=== PATIENT | female | born 1975 | race Caucasian/White ===

== ENCOUNTER 2022-10-04 13:35 | Inpatient (IN) | payer OTHER, SELFPAY ==
[2022-10-04] VITALS (31 sets, daily range): BP systolic 121–146; BP diastolic 56–81; PULSE 85–109; RESP 18–34; TEMP 36.6–37.1; O2SAT 88–100; BMI 44.2
--- NOTE | ~2022-10-04 | XR_ITS ---
EXAMINATION: XR chest 1V portable INDICATION: Abnormal lung sounds TECHNIQUE: Portable AP chest at 1035 hours COMPARISON: 10/04/2022 FINDINGS: The lungs are free of acute opacities. No pleural effusion or pneumothorax. The cardiomedia stinal silhouette is normal. IMPRESSION: 1. No acute cardiopulmonary abnormality. Reviewed, dictated and finalized at location A.
--- NOTE | ~2022-10-04 | US_ITS ---
EXAMINATION: US venous doppler [facility] DATE: 10/05/2022 14:24 INDICATION: Lower limb swelling. TECHNIQUE: Grayscale ultrasound images without and with compression and Doppler ultrasound images of the bilateral lower extremity veins were obtained. COMPARISON: None. FINDINGS: The visualized portions of right common femoral vein, profunda (deep) femoral vein, femoral vein, pop liteal vein, peroneal veins, posterior tibial veins, and greater saphenous vein outflow are patent. The visualized portions of left common femoral vein, profunda femoral vein, femoral vein, popliteal v ein, peroneal veins, posterior tibial veins, and greater saphenous vein outflow are patent. IMPRESSION: 1. No deep venous thrombosis. Reviewed, dictated and finalized at location A.
--- NOTE | ~2022-10-04 | XR_ITS ---
EXAMINATION: XR chest 2V DATE: 10/04/2022 15:27 INDICATION: Shortness of breath, cough and wheezing TECHNIQUE: PA and lateral views of the chest were obtained. COMPARISON: None FINDINGS: The lungs are clear with no focal airspace opacities, pulmonary edema, pleural effusion or pneumothor ax. The cardiomediastinal silhouette is normal. Mild thoracic spondylosis. IMPRESSION: 1. No acute cardiopulmonary disease. Reviewed, dictated and finalized at location A.
--- NOTE | ~2022-10-04 | CT_ITS ---
EXAMINATION: CTA chest PE protocol DATE: 10/04/2022 18:26 INDICATION: Shortness of breath. Wheezing. Bilateral lower limb swelling. TECHNIQUE: Computed tomography (CT) pulmonary angiogram of the chest was performed with 100 mL Omnipa que-350 intravenous contrast. Additional 3D reconstructions utilizing coronal maximum intensity proje ction (MIP) were performed. Automated exposure control and iterative reconstruction technique were em ployed. The dose-length product was 932.34 mGy-cm. COMPARISON: None FINDINGS: Good contrast opacification of the pulmonary arteries. There is mild streak artifact from dense contr ast in the superior vena cava and right atrium. Mild to moderate scattered respiratory motion artifac t which mildly decreases sensitivity in some of the segmental and subsegmental pulmonary arteries. No pulmonary embolism. Calcified nodules at the inferomedial right lower lobe consistent with old granu lomatous disease. No pneumonia, pulmonary edema or other pulmonary infiltrates. No pleural effusion o r pneumothorax. Heart size is normal. No pericardial effusion. No pathologically enlarged thoracic ly mphadenopathy. Very small calcified gallstone in the dependent aspect of the normal gallbladder. Mild thoracic spondylosis. IMPRESSION: 1. No pulmonary embolism. Sensitivity mildly decreased in the segmental and subsegmental pulmonary ar teries due to primarily to mild to moderate scattered motion artifact. No other acute cardiopulmonary disease. Reviewed, dictated and finalized at location A. IMPRESSION: 1. No pulmonary embolism. Sensitivity mildly decreased in the segmental and sub segmental pulmonary arteries due to primarily to mild to moderate scattered mot ion artifact. No other acute cardiopulmonary disease.
--- NOTE | 2022-10-04 13:40 | ECG_ITS ---
Measurements Intervals [place] Rate: 97 P: 48 NC: 140 QRS: 66 QRSD: 84 T: 45 QT: 349 QTc: 445 Interpretive Statements SINUS RHYTHM LOW QRS VOLTAGE IN PRECORDIAL LEADS NONSPECIFIC ST & T-WAVE ABNORMALITY- ANTEROLAT/INF LEADS BASELINE WANDER- III, V5 BORDERLINE ECG NO PREVIOUS ECG AVAILABLE FOR COMPARISON Electronically Signed On 10-04-2022 21:23:39 CDT by Noah Canales D.O.
[2022-10-04 13:59] LABS: Basophils Percent Auto 0.2 % (0.2-1.2); Eosinophils Absolute Auto 0.1 K/mm3 (0-0.3); Eosinophils Percent Auto 0.4 % (0-4.4); Hemoglobin 14.3 g/dL (12.0-15.0); Immature Granulocyte Absolute 0.03 K/mm3 (0.00-0.031); Immature Granulocyte Percent A 0.3 % (0-0.5); Lymphocytes Absolute Auto 0.81 K/mm3 (0.9-3.2); Mean Corpuscular HGB Conc 33.3 g/dl (32-36); Mean Corpuscular Hemoglobin 30.9 pg (26-34); Mean Corpuscular Volume 92.9 fl (80-100); Mean Platelet Volume 9.7 fl (7.4-10.4); Monocytes Absolute Auto 0.5 K/mm3 (0.1-0.6); Monocytes Percent Auto 4.3 % (2.6-8.5); Neutrophils Absolute Auto 10.2 K/mm3 (1.3-6.7); Neutrophils Percent Auto 87.8 % (45.5-73.1); Platelet Count Result 229 k/mm3 (150-375); Red Blood Count 4.63 M/mm3 (4.2-5.4); Red Cell Distribution Width 12.9 % (11.5-14.5); White Blood Count 11.6 K/mm3 (4.5-10.0)
[2022-10-04 14:08] LABS: Alanine Aminotransferase 33 U/L (6-35); Albumin Level 4.5 g/dL (3.5-5.1); Alkaline Phosphatase 86 U/L (38-126); Anion Gap 6 mmol/L (8-16); Aspartate Amino Transferase 38 U/L (14-36); Bilirubin,Total 0.8 mg/dL (0.2-1.3); Blood Urea Nitrogen 9 mg/dL (7-17); Calcium 9.2 mg/dL (8.4-10.2); Carbon Dioxide 29 mmol/L (22-30); Chloride 103 mmol/L (98-107); Estimated CRCL calculation 117 ml/min; Estimated Glomerular Filt Rate > 60; Glucose 104 mg/dL (65-110); Sodium 138 mmol/L (137-145)
--- NOTE | 2022-10-04 15:58 | ED.SOB ---
HPI - SOB/Dyspnea General Chief Complaint: Shortness of Breath/Dyspnea <DONAL Skinner Last Filed: 10/04/22 19:30> Stated Complaint: dyspnea <DONAL Skinner Last Filed: 10/04/22 19:30> Time Seen by Provider: 10/04/22 15:30 <DONAL Skinner Last Filed: 10/04/22 19:30> Source: patient <DONAL Skinner Last Filed: 10/04/22 19:30> Mode of arrival: ambulatory <DONAL Skinner Last Filed: 10/04/22 19:30> Limitations: no limitations <DONAL Skinner Last Filed: 10/04/22 19:30> History of Present Illness HPI Narrative: Patient is a 47 y/o female who presents to the ED with c/o SOB. Patient reports having increased shortness of breath since Wednesday night. She reports shortness of breath is worse with exertion, laying flat. She also reports having a cough, congestion, wheezing, and lower extremity swelling for the past 2 weeks. She denies any known lung issues. Denies history of previously diagnosed COPD, asthma, emphysema, CHF. Denies cardiac disease. Denies lower extremity pain, chest pain, fevers, recent sick contacts. Patient was sent from the urgent care due to her oxygen reportedly being low there. SaO2 94% on RA upon arrival. Patient is a smoker. <DONAL Skinner Last Filed: 10/04/22 19:30> Related Data Home Medications: Home Medications Medication Instructions Recorded Confirmed No Home Medications 10/04/22 10/04/22 <DONAL Skinner Last Filed: 10/04/22 19:30> Allergies/Adverse Reactions: Allergies Allergy/AdvReac Type Severity Reaction Status Date / Time No Known Allergies Allergy Verified 10/04/22 13:40 <DONAL Skinner Last Filed: 10/04/22 19:30> Review of Systems Review of Systems: CONSTITUTIONAL: Denies fever, chills, or sweats. ENT: See HPI. CARDIOVASCULAR: See HPI. RESPIRATORY: See HPI. GASTROINTESTINAL: Denies abdominal pain, nausea, vomiting. MUSCULOSKELETAL: Denies back pain, joint pain, or myalgia. <Sara Rowell PA-C - Last Filed: 10/04/22 19:30> All systems reviewed & are unremarkable except as noted in HPI and below <Sara Rowell PA-C - Last Filed: 10/04/22 19:30> [facility] Family History Family History: Family History Mother Acute myocardial infarction Diabetes mellitus Father Diabetes mellitus <DONAL Skinner Last Filed: 10/04/22 19:30> Social History Social History: Social History Smoking packs per day: 1 Smoking cigarettes per day: 20.0 Smoking status: Current every day smoker Tobacco type: cigarettes Alcohol intake: never Substance use: never Substance use type: does not use Lack of Transportation: No Lack of Food: Never True Current Housing: I Have Housing Concerned About Future Housing: No Difficulty Paying Gas/Electric Bills: No Difficulty Paying for Meds: No Currently Unemployed: No Education: High School Diploma/GED Difficulty w/ Childcare or Family Care: No Spiritual care concerns: No <DONAL Skinner Last Filed: 10/04/22 19:30> Exam Narrative: GENERAL: Mildly ill-appearing, morbidly obese with BMI of 42.1, non-toxic, in no acute distress. HEAD: Normocephalic, atraumatic. ENT: Poor dentition. NECK: Supple. No adenopathy, no masses. RESPIRATORY: Airway patent, respirations nonlabored. Coarse breath sounds bilaterally. Diffuse expiratory wheezing. Rhonchi in bases. Frequently coughing on exam. CARDIOVASCULAR: Borderline tachycardic with regular rhythm without murmurs, rubs, or gallops. Pedal pulses 2+ and equal bilaterally. ABDOMINAL: Soft, nontender, nondistended, no hepatosplenomegaly. Normoactive BS. MUSCULOSKELETAL: Moves all extremities. Strength/ROM intact without gross deformities. 1+ edema to low
[2022-10-04] MEDS: IPRATROPIUM BR 0.02% INH SOLN 0.5 MG/2.5 ML VIAL 1.5 MG INHALATION (16:09)
[2022-10-04] MEDS: LEVALBUTEROL NEB 1.25 MG/3 ML 2.5 MG INHALATION (16:10)
--- NOTE | 2022-10-04 16:13 | PC.NURSE ---
RT at bedside to administer breathing treatment.
[2022-10-04 16:43] LABS: NT Pro B Type Natriuretic Pept 276 pg/mL (19.9-100); Troponin I 0.015 ng/mL (0.000-0.034)
[2022-10-04 16:53] LABS: Influenza A QL RT-PCR Negative (Negative); Influenza B QL RT-PCR Negative (Negative); SARS-CoV-2 RNA PCR Negative (Negative)
[2022-10-04 16:53] LABS: Troponin I 0.016 ng/mL (0.000-0.034)
[2022-10-04 16:56] LABS: D Dimer 0.53 ug/mL (<0.48)
--- NOTE | 2022-10-04 17:40 | PC.NURSE ---
RT at bedside to obtain ABG.
[2022-10-04] MEDS: methylPREDNISolone SOD SUCC 125 MG VIAL IV PUSH (17:41)
[2022-10-04 17:54] LABS: Alveolar/Arterial O2 Gradient 121.5 mmHg; Carboxyhemoglobin 1.8 % THb (0-2.0); Fractional Inspired Oxygen 32 %; HCO3 ABG 27.2 mEq/l (22.0-26.0); Methemoglobin ABG 0.3 %THb (0-1.5); Oxygen Content ABG 18.1 %vol (16.0-22.0); Oxygen Saturation ABG 88.5 % (95.0-100.0); PCO2 ABG 44.4 mmHg (35.0-45.0); PO2 ABG 54.7 mmHg (80.0-100.0); PO2 FiO2 Ratio Arterial Blood 1.71 %; Reduced Hemoglobin 10.6 %THb (0-5.0); Total Hemoglobin 14.8 g/dL (12.0-18.0); pH ABG 7.405 (7.350-7.450)
[2022-10-04 17:57] LABS: Modified Allen's Test Pass; Oxyhemoglobin 87.3 % THb (90.0-100.0); Site Drawn RIGHT RADIAL
--- NOTE | 2022-10-04 19:20 | PC.NURSE ---
Patient report given to LUCIA Ng. All questions answered and care of patient transferred.
--- NOTE | 2022-10-04 19:50 | PM.IMHP ---
H&P: HPI History of Present Illness Date/Time: 10/04/22 19:50 Chief Complaint: worsening shortness of breath Narrative: This is a 47 y/o female with a past medical history of chronic smoking who presents to the ED with c/o SOB.?She has smoked 1-1.5 PPD since starting smoking at age 15. She was able to successfully quit smoking for a whole year but relapsed after a stressor. She does not see a physician in the community and has not kept up with her age-appropriate screening test. At baseline, she is fully functional, works 10-hour shifts at the local [employer]. She can walk up to 2 miles a day. THe patient was in her usual state of health until 2 weeks prior to presentation. She describes progressive lower extremity swelling that she initially attributed to her prolonged standing. She then started feeling progressively short of breath, worsening with exertion and laying flat. She describes a dry non productive cough. The was no recent ilness, travel, or exposure to a sick contact. Her mother was diagnosed with her disease and had a bypass in her early 50s. ? She denies any known pulmonary issues.? There is no previous diagnosis of COPD, asthma, emphysema, CHF.? Patient was originally evaluated at the urgent care who referred her to Ed due to hypoxemia. ON arrival to the ED, resting saturation dropped to 87% on room air. The patient was short of breath with wheezing. She was then placed on oxygen 2 L nasal cannula with improvement to 91%. ABG was obtained patient was hypoxemic with oxygen saturation of 88%. Her oxygen supplementation was increased to 4 liters/minute. She had a temperature of 98.3? fine night, pulse 106, respiration 18, blood pressure 146/76, pulse oximetry 94% on 4 L. A chest x-ray was obtain without focal findings or evidence of pulmonary edema. D-dimer was only mildly elevated at 0.53. CT angiogram of the chest did not reveal any thromboembolism. A COVID and influenza were negative. Due to her history of chronic smoking, a pretty is Optive diagnosis of COPD was entertained. Patient was started on aggressive nebulization sedation while maintaining oxygen supplementation. Due to acute respiratory failure with hypoxia and oxygen requirement the hospital service was consulted for further evaluation and management. Review of Systems Const: All systems reviewed & are unremarkable except as noted in HPI and below Reports no additional constitutional complaints and fatigue; Denies fever(s) or sleep disturbance Eyes: Reports no additional eye complaints and as per HPI; Denies change in vision ENT: Reports no additional ear, nose, mouth, and throat complaints and dental problems; Denies as per HPI, sore throat or neck pain Card: Reports no additional cardiovascular complaints and other; Denies chest pain, palpitations or syncope Details: lower extremity edema Resp: Reports as per HPI, Reports cough, Reports dyspnea on exertion, Denies excessive phlegm production, Denies hemoptysis and Reports wheezing GI: Reports no additional gastrointestinal complaints; Denies abdominal pain, nausea or vomiting : Reports no additional female genitourinary complaints and as per HPI; Denies hematuria or urinary frequency Musc: Reports no additional musculoskeletal complaints and swelling; Denies back pain or decreased strength Skin: Reports no additional skin complaints Neuro: Reports no additional neurologic complaints; Denies headache(s), altered mental status, numbness or weakness Psych: Reports no additional psychiatric complaints; Denies anxiety or depression Endo: Reports no additional endocrine complaints; Denies polydipsia or polyuria Aguilar/Lymph: Reports no additional hematologic/lymphatic complaints; Denies easy bleeding or easy bruising Aller/Immun: Reports no additional allergic/immunologic complaints; Denies allergic reaction or urticaria [facility] Family History Family History (Reviewed 10/04/22 @ 23:55 by Trinity Boykin
[2022-10-04 19:51] LABS: Troponin I 0.019 ng/mL (0.000-0.034)
[2022-10-04] MEDS: IPRATROPIUM BR 0.02% INH SOLN 0.5 MG/2.5 ML VIAL INHALATION (20:23)
[2022-10-04] MEDS: LEVALBUTEROL NEB 1.25 MG/3 ML 0.63 MG INHALATION (20:23)
--- NOTE | 2022-10-04 21:45 | ADMGEN ---
This patient, Tata Bacon, was admitted to IMU Room 212-01 at 2100. Patient/family oriented to hospital policies and general routines including ID bracelet, bed and alarms, visiting hours, pain management, procedures, bathroom and other care routines, personal items, smoking policy, room service/diet, and visiting hours. Information on how to activate the Rapid Response Team has been discussed. Patient/Family are encouraged to report perceived risks to care and to ask questions if they do not understand what they are told or what they should do.
[2022-10-05] VITALS (20 sets, daily range): BP systolic 112–124; BP diastolic 60–77; PULSE 74–106; RESP 18–22; TEMP 36.3–36.8; O2SAT 92–99
[2022-10-05] MEDS: IPRATROPIUM BR 0.02% INH SOLN 0.5 MG/2.5 ML VIAL INHALATION ×4 (02:28→20:40)
[2022-10-05] MEDS: LEVALBUTEROL NEB 1.25 MG/3 ML 0.63 MG INHALATION ×4 (02:28→20:40)
[2022-10-05] MEDS: FUROSEMIDE INJ 40 MG/4 ML VIAL IV PUSH (02:41)
[2022-10-05] MEDS: methylPREDNISolone SOD SUCC 40 MG VIAL IV PUSH ×3 (05:55→22:00)
--- NOTE | 2022-10-05 06:00 | ECHO_ITS ---
Patient Info Name: Tata Bacon Age: 47 years : 1975 Gender: Female Ht: 66 in Wt: 274 lbs BSA: 2.47 m2 HR: 102 bpm BP: 116 / 77 mmHg Heart Rhythm: Sinus Rhythm Technical Quality: Fair Exam Date: 10/05/2022 10:25 AM Exam Location: [facility] Patient Status: Inpatient Admit Date: 10/04/2022 Staff Ordering Physician: Sara Rowell PA-C [place] Counselor: Meli Wynn RDCS Attending Provider: Trinity Ralph MD Referring Physician: Sorin FERRO; Exam Type: CA echo dop color flow w con Study Info Indications - mild elevated BNP, COPD, BLE swelling Complete two-dimensional, color flow and Doppler transthoracic echocardiogram is performed with contrast to opacify the left ventricle and to improve the deliniation of the left ventricle endocardial borders. Contrast/Agitated Saline Contrast/Ag. Saline: Definity Amount: 3.00 ml Administered By: Meli Wynn RDCS Existing IV Access: Yes IV Access Condition: patent with no signs of infiltration Summary 1. Technically difficult study. Definity echo contrast administered. 2. Left ventricular chamber dimension is normal. 3. Left ventricular systolic function is normal, estimated at 65-70%. 4. There is no increased left ventricular wall thickness. 5. Right atrial chamber dimension is mildly enlarged. 6. There is no aortic valve stenosis. 7. There is trace mitral valve regurgitation. 8. There is trace tricuspid valve regurgitation. 9. Mild pulmonary hypertension, estimated pulmonary arterial systolic pressure is 36 mmHg. Left Ventricle Left ventricular chamber dimension is normal. Left ventricular systolic function is normal, estimated at 65-70%. There is no increased left ventricular wall thickness. Left ventricular septal wall motion is abnormal with septal motion related to bundle branch block. Technically difficult study. Definity echo contrast administered. Right Ventricle Right ventricular chamber dimension is normal. Right ventricular systolic function is normal. Left Atria Left atrial chamber dimension is normal. Right Atria Right atrial chamber dimension is mildly enlarged. Aortic Valve The aortic valve is not well visualized. There is no aortic valve stenosis. There is no aortic valve regurgitation. Pulmonic Valve The pulmonic valve is not well visualized. There is trace pulmonic regurgitation. Mitral Valve The mitral valve has normal leaflets. There is trace mitral valve regurgitation. Tricuspid Valve The tricuspid valve leaflets are normal. There is trace tricuspid valve regurgitation. Mild pulmonary hypertension, estimated pulmonary arterial systolic pressure is 36 mmHg. Pericardium/Pleural The pericardium appears normal. There is no pericardial effusion. Inferior Vena Cava Normal inferior vena cava with >50% collapse upon inspiration consistent with normal right atrial pressure, 5 mmHg. Aorta The aortic root size at the sinus of Valsalva is normal. Left Ventricular Outflow Tract Name Value Normal LVOT 2D LVOT Diameter 2.04 cm LVOT Doppler LVOT Peak Gradient 5 mmHg LVOT Mean Gradient 3 mmHg
[2022-10-05] MEDS: ENOXAPARIN 40 MG/0.4 ML SYRINGE SUB-Q (08:51)
[2022-10-05] MEDS: PERFLUTREN LIPID MICROSPHERES 1.5 ML VIAL DILUTED TO 10 ML TOTAL VOLUME IV PUSH (11:15)
--- NOTE | 2022-10-05 12:27 | PM.IMPN ---
Progress Note: A&P Assessment and Plan (1) Acute respiratory failure with hypoxia: Code(s): J96.01 - Acute respiratory failure with hypoxia Status: Acute Assessment and Plan: Chronic tobacco exposure. Likely related to underlying COPD Continue treatment for COPD (2) Acute exacerbation of chronic obstructive airways disease: Code(s): J44.1 - Chronic obstructive pulmonary disease with (acute) exacerbation Status: Acute Assessment and Plan: Patient has a his history of chronic smoking. At presentation she is symptomatic with diffuse bilateral wheezing, improving with steroids, short and long acting bronchodilators. She will be referred for spirometry as an outpatient for formal diagnosis. Continue prednisone (3) Swelling of both lower extremities: Code(s): M79.89 - Other specified soft tissue disorders Status: Acute Assessment and Plan: Patient developed bilateral lower extremity swelling [address] angiogram of the chest previously was negative. Cardiac workup pending. D-dimer 0.53. Essentially negative. (4) Heart failure: Code(s): I50.9 - Heart failure, unspecified Status: Acute Assessment and Plan: Cardiac workup pending (5) Contact with and (suspected) exposure to environmental tobacco smoke (acute) (chronic): Code(s): Z77.22 - Contact with and (suspected) exposure to environmental tobacco smoke (acute) (chronic) Status: Acute Assessment and Plan: Patient has been strongly counseled about importance of smoking cessation. She declined nicotine patch at the moment. (6) Obesity (BMI 30-39.9): Code(s): E66.9 - Obesity, unspecified Status: Acute Assessment and Plan: Diet and exercise. Likely exacerbating her symptoms as well. Plan DVT prophylaxis: Lovenox Subjective Date/time seen: 10/05/22 12:27 Interval history: No complaints Exam Narrative: GENERAL: Mildly ill-appearing, morbidly obese with BMI of 44.2, non-toxic, in no acute distress. HEAD: Normocephalic, atraumatic. ENT: Poor dentition. NECK: Supple. No adenopathy, no masses. RESPIRATORY: Airway patent, respirations nonlabored. Diffuse expiratory wheezing. Rhonchi in bases. CARDIOVASCULAR: Borderline tachycardic with regular rhythm without murmurs, rubs, or gallops. Pedal pulses 2+ and equal bilaterally. ABDOMINAL: Soft, nontender, nondistended, no hepatosplenomegaly. Normoactive BS. MUSCULOSKELETAL: Moves all extremities. Strength/ROM intact without gross deformities. 2+ edema to lower extremities bilaterally, nonpitting. No significant calf tenderness. SKIN: Warm, dry, normal color. No rashes. NEURO: A&O X3. Speech clear. Cranial nerves II-XII grossly intact. Gait testing was deferred. PSYCHIATRIC: Appropriate mood and affect. Normal interaction. Objective Data Vital Signs Vital Signs: Vital Signs - 24 hr 10/04/22 13:36 10/04/22 16:00 10/04/22 15:59 Temperature 98.3 F Pulse Rate 106 H 86 Respiratory Rate 18 29 H Blood Pressure 146/76 H 129/70 Pulse Oximetry 94 96 93 Oxygen Delivery Room Air Room Air Oxygen Flow Rate 10/04/22 16:00 10/04/22 16:01 10/04/22 16:27 Temperature Pulse Rate 109 H 87 89 Respiratory Rate 22 H 34 H 28 H Blood Pressure 124/81 Pulse Oximetry 93 91 Oxygen Delivery Oxygen Flow Rate 10/04/22 16:02 10/04/22 16:15 10/04/22 16:30 Temperature Pulse Rate 85 87 88 Respiratory Rate 26 H 31 H 28 H Blood Pressure Pulse Oximetry 93 100 100 Oxygen Delivery Oxygen Flow Rate 10/04/22 16:45 10/04/22 17:00 10/04/22 17:15 Temperature Pulse Rate 86 101 H 93 Respiratory Rate 32 H 27 H 28 H Blood Pressure Pulse Oximetry 100 100 90 Oxygen Delivery Oxygen Flow Rate 10/04/22 17:39 10/04/22 17:24 10/04/22 17:30 Temperature Pulse Rate 95 85 Respiratory Rate 26 H 27 H Blood Pressure 124/67 121/64 Pulse Oximetry 91 88 L 92 Oxygen Deli
--- NOTE | 2022-10-05 12:40 | IVDEFINITY ---
Prior to administration of IV Definity the patient was educated on the risks and benefits of the imaging enhancing agent including potential adverse side effects. The patient verbalized understanding. Allergies were verified. No exclusion criteria were identified and at least one of the following inclusion criteria were met: 1) physician request, 2) patient technically difficult to image (per the [place] [employer] guidelines of two or more segments not discernable within the apical view), or 3) questionable left ventricular function. ?
[2022-10-06] VITALS (22 sets, daily range): BP systolic 116–142; BP diastolic 53–85; PULSE 62–96; RESP 16–22; TEMP 36.2–37.1; O2SAT 91–100
[2022-10-06] MEDS: LEVALBUTEROL NEB 1.25 MG/3 ML 0.63 MG INHALATION ×4 (02:02→21:12)
[2022-10-06] MEDS: IPRATROPIUM BR 0.02% INH SOLN 0.5 MG/2.5 ML VIAL INHALATION ×4 (02:02→21:13)
[2022-10-06 05:13] LABS: Basophils Percent Auto 0.1 % (0.2-1.2); Hematocrit 40.5 % (37.0-47.0); Hemoglobin 13.2 g/dL (12.0-15.0); Immature Granulocyte Absolute 0.16 K/mm3 (0.00-0.031); Lymphocytes Absolute Auto 0.75 K/mm3 (0.9-3.2); Lymphocytes Percent Auto 4.7 % (18.3-44.2); Mean Corpuscular HGB Conc 32.6 g/dl (32-36); Mean Corpuscular Hemoglobin 31.1 pg (26-34); Mean Corpuscular Volume 95.3 fl (80-100); Mean Platelet Volume 9.9 fl (7.4-10.4); Monocytes Absolute Auto 0.2 K/mm3 (0.1-0.6); Monocytes Percent Auto 1.3 % (2.6-8.5); Neutrophils Absolute Auto 14.9 K/mm3 (1.3-6.7); Neutrophils Percent Auto 92.9 % (45.5-73.1); Platelet Count Result 236 k/mm3 (150-375); Red Blood Count 4.25 M/mm3 (4.2-5.4); Red Cell Distribution Width 13.2 % (11.5-14.5)
[2022-10-06] MEDS: methylPREDNISolone SOD SUCC 40 MG VIAL IV PUSH ×3 (05:21→21:15)
[2022-10-06 05:46] LABS: Anion Gap 3 mmol/L (8-16); Blood Urea Nitrogen 17 mg/dL (7-17); Calcium 9.4 mg/dL (8.4-10.2); Carbon Dioxide 34 mmol/L (22-30); Chloride 100 mmol/L (98-107); Estimated CRCL calculation 117 ml/min; Estimated Glomerular Filt Rate > 60; Glucose 155 mg/dL (65-110); Potassium 4.3 mmol/L (3.4-5.0); Sodium 137 mmol/L (137-145)
[2022-10-06] MEDS: ENOXAPARIN 40 MG/0.4 ML SYRINGE SUB-Q (09:51)
[2022-10-06] MEDS: guaiFENesin 600 MG/DEXTROMETHORPHAN 30 MG SR TAB 12 HR 1 TAB PO ×2 (12:06→21:14)
--- NOTE | 2022-10-06 13:02 | PM.IMPN ---
Progress Note: A&P Assessment and Plan (1) Acute respiratory failure with hypoxia: Code(s): J96.01 - Acute respiratory failure with hypoxia Status: Acute Assessment and Plan: Chronic tobacco exposure. Likely related to underlying COPD Continue treatment for COPD (2) Acute exacerbation of chronic obstructive airways disease: Code(s): J44.1 - Chronic obstructive pulmonary disease with (acute) exacerbation Status: Acute Assessment and Plan: Continue with bronchodilators Continue prednisone Overall much better. Likely discharge tomorrow. Smoking cessation counseled. (3) Swelling of both lower extremities: Code(s): M79.89 - Other specified soft tissue disorders Status: Acute Assessment and Plan: Patient developed bilateral lower extremity swelling [address] angiogram of the chest previously was negative. Cardiac workup pending. D-dimer 0.53. Essentially negative. (4) Heart failure: Code(s): I50.9 - Heart failure, unspecified Status: Acute Assessment and Plan: Cardiac workup pending (5) Contact with and (suspected) exposure to environmental tobacco smoke (acute) (chronic): Code(s): Z77.22 - Contact with and (suspected) exposure to environmental tobacco smoke (acute) (chronic) Status: Acute Assessment and Plan: Patient has been strongly counseled about importance of smoking cessation. She declined nicotine patch at the moment. (6) Obesity (BMI 30-39.9): Code(s): E66.9 - Obesity, unspecified Status: Acute Assessment and Plan: Diet and exercise. Likely exacerbating her symptoms as well. Plan DVT prophylaxis: Lovenox Subjective Date/time seen: 10/06/22 13:02 Interval history: Respiratory status is about the same. Still has significant wheezing. Not requiring oxygen. Overall feels somewhat better. Exam Narrative: GENERAL: Mildly ill-appearing, morbidly obese with BMI of 44.2, non-toxic, in no acute distress. HEAD: Normocephalic, atraumatic. ENT: Poor dentition. NECK: Supple. No adenopathy, no masses. RESPIRATORY: Airway patent, respirations nonlabored. Diffuse expiratory wheezing. Rhonchi in bases. CARDIOVASCULAR: Borderline tachycardic with regular rhythm without murmurs, rubs, or gallops. Pedal pulses 2+ and equal bilaterally. ABDOMINAL: Soft, nontender, nondistended, no hepatosplenomegaly. Normoactive BS. MUSCULOSKELETAL: Moves all extremities. Strength/ROM intact without gross deformities. 2+ edema to lower extremities bilaterally, nonpitting. No significant calf tenderness. SKIN: Warm, dry, normal color. No rashes. NEURO: A&O X3. Speech clear. Cranial nerves II-XII grossly intact. Gait testing was deferred. PSYCHIATRIC: Appropriate mood and affect. Normal interaction. Objective Data Vital Signs Vital Signs: Vital Signs - 24 hr 10/05/22 13:17 10/05/22 13:31 10/05/22 14:00 Temperature Pulse Rate 82 86 Respiratory Rate 20 Blood Pressure Pulse Oximetry 95 Oxygen Delivery Nasal Cannula Oxygen Flow Rate 3 10/05/22 16:00 10/05/22 16:00 10/05/22 20:00 Temperature 98.3 F 97.6 F Pulse Rate 82 74 89 Respiratory Rate 18 20 Blood Pressure 124/71 112/68 Pulse Oximetry 97 93 Oxygen Delivery Oxygen Flow Rate 10/05/22 20:40 10/05/22 20:55 10/05/22 21:16 Temperature Pulse Rate 74 91 74 Respiratory Rate 20 20 Blood Pressure Pulse Oximetry 97 Oxygen Delivery Nasal Cannula Oxygen Flow Rate 4 10/05/22 20:00 10/05/22 20:00 10/05/22 23:16 Temperature 97.4 F L Pulse Rate 85 83 87 Respiratory Rate 22 H Blood Pressure 123/60 Pulse Oximetry 99 96 Oxygen Delivery Nasal Cannula Oxygen Flow Rate 3 10/05/22 22:00 10/06/22 00:00 10/06/22 02:00 Temperature Pulse Rate 86 64 63 Respiratory Rate Blood Pressure Pulse Oximetry Oxygen Delivery Oxygen Flow Rate 10/06/22 02:02 10/06/22 02:02 10/06/22
--- NOTE | 2022-10-06 15:48 | PC.NURSE ---
This patient, Tata Bacon, was transferred to [[id number] ] on 10/06/22 at 1455. Personal belongings sent with patient. Report given to [Mell ]. Appropriate documentation sent with patient.
[2022-10-07] VITALS (8 sets, daily range): BP systolic 104–148; BP diastolic 69–81; PULSE 65–86; RESP 18–20; TEMP 36.6–36.9; O2SAT 92–97
[2022-10-07] MEDS: IPRATROPIUM BR 0.02% INH SOLN 0.5 MG/2.5 ML VIAL INHALATION ×3 (01:56→14:09)
[2022-10-07] MEDS: LEVALBUTEROL NEB 1.25 MG/3 ML 0.63 MG INHALATION ×3 (01:56→14:09)
[2022-10-07] MEDS: methylPREDNISolone SOD SUCC 40 MG VIAL IV PUSH ×2 (05:22→14:06)
[2022-10-07] MEDS: ENOXAPARIN 40 MG/0.4 ML SYRINGE SUB-Q (08:00)
[2022-10-07] MEDS: guaiFENesin 600 MG/DEXTROMETHORPHAN 30 MG SR TAB 12 HR 1 TAB PO (08:00)
[2022-10-07 08:10] LABS: Glucose Point of Care 116 mg/dl (65-105)
--- NOTE | 2022-10-07 10:47 | P.CDI_ITS ---
CDI Query Clarification Request Elevated BNP on 10/04/22 lab work. HF noted in the assessment and plan. Patient presents with complaints of LE edema, shortness of breath with exertion and orthopnea. Edema noted in the documentation. Patient did receive Lasix. Patient requiring oxygen. Please specify type and acuity of heart failure if known. * Acute * Chronic * Acute on Chronic * Unknown * Systolic * Diastolic * Combined Systolic and Diastolic * Unknown <Mell Mcpherson RN - Last Filed: 10/07/22 10:54> Clarified Diagnosis Clarified Diagnosis: dont feel she had CHF <Titus Knapp MD - Last Filed: 10/07/22 15:18>
[2022-10-07 11:46] LABS: Glucose Point of Care 101 mg/dl (65-105)
--- NOTE | 2022-10-07 15:04 | PM.DS ---
DS: Admitting Diagnosis Discharge Date 10/07/22 Admitting Diagnosis Shortness of breath DS: Discharge Diagnosis Discharge Diagnosis (1) Acute respiratory failure with hypoxia: Code(s): J96.01 - Acute respiratory failure with hypoxia Status: Acute (2) Acute exacerbation of chronic obstructive airways disease: Code(s): J44.1 - Chronic obstructive pulmonary disease with (acute) exacerbation Status: Acute (3) Swelling of both lower extremities: Code(s): M79.89 - Other specified soft tissue disorders Status: Acute (4) Contact with and (suspected) exposure to environmental tobacco smoke (acute) (chronic): Code(s): Z77.22 - Contact with and (suspected) exposure to environmental tobacco smoke (acute) (chronic) Status: Acute (5) Obesity (BMI 30-39.9): Code(s): E66.9 - Obesity, unspecified Status: Acute DS: Summary Hospital Course Reason for hospitalization: 47-year-old female with a history of tobacco abuse who presents emergency complaints of shortness of breath. Please see H&P for details. Hospital Course: In the ED, patient had an SpO2 of 87% on room air. Patient was short of breath with wheezing. She is placed on oxygen with improvement. Chest x-ray is clear. COVID and influenza swab were negative. BNP was 276. Troponin was negative x3. EKG showed normal sinus rhythm with low voltage and nonspecific ST-T wave changes. White count was mildly elevated. She was started on steroids and nebulizer treatments. White count did climb but felt more likely related to the steroids and not infectious process. ABG below 7.40/44/55 on room air. D-dimer was positive. CTA showed no PE great although sensitivity was mildly decreased due to motion artifact. No other acute cardiopulmonary disease noted. Lower extremity venous Dopplers were negative for DVT. Chest x-ray was repeated and remained clear. Echocardiogram showed EF of 65-70% with mild pulmonary hypertension. There was abnormal septal motion is sore but patient does not have a bundle branch block. Discussion with Cardiology showed that this finding was less likely on re-evaluation (report to be corrected). Patient was educated extensively about the benefits of smoking cessation. She overall did well was able discharged home on 10/07/2022. Status at Discharge Cognitive/behavioral status at discharge: stable Time Spent with Patient Time attestation: Total time spent providing and/or coordinating discharge services: 35 minutes Time spent: Greater than 30 minutes Exam Narrative: AF 97.8 104/72 65 20 92% ra Gen - NARD Chest - scattered wheezing. CV - RRR S1/S2 Abd - Soft, NT/ND, Positive BS Ext - No pitting pedal edema Psych - Nml mood and affect Skin - Warm and dry DS: Data Data Completed and Pending Labs on day of discharge: Labs from last 24 hours 10/07/22 10/07/22 11:42 08:03 POC Capillary Glucose 101 116 H Discharge Plan Discharge Attending physician on discharge: Titus Knapp Consulting providers: Sara Rowell Discharging Clinician: Titus Knapp Anticipated Discharge Date/Time: 10/07/22 15:12 Patient Disposition: Home, Self-Care Activity: as tolerated Diet: heart healthy Discharge Instructions: Contact your doctor or call 911 and come to the Emergency Room if you have increasing shortness of breath or other worrisome symptoms. Avoid NSAIDs (ibuprofen, naproxen, Aleve). Tylenol is safe to take. Follow-up with your primary care provider in 1-2 weeks. Please call for appointment. Thank you for using [facility] for your health care needs. Patient Instructions: Antibiotic Form, How to Stop Smoking (DC), COPD (Chronic Obstructive Pulmonary Disease) (DC), Acute Respiratory Failure (GEN) Stand Alone Forms: General Discharge Information Follow-up/Referrals: PHYSICIAN NOT ON STAFF,NONSTAFF [Primary Care
== END 2022-10-07 16:05 | disposition home or self-care (01) | DRG 189 ==
LOC: ANHED 19:18 → ANHIMU 19:55 → ANH2MED 10-06 15:14
PROVIDERS: Chiropractor; Emergency Medicine; Admitting Provider Internal Medicine; Emergency Provider Physician Assistant; Visit Provider Internal Medicine
DX: J96.01 Acute respiratory failure with hypoxia (principal); J44.1 Chronic obstructive pulmonary disease with (acute) exacerbation; Z68.41 Body mass index [BMI] 40.0-44.9, adult; M79.89 Other specified soft tissue disorders; Z77.22 Contact with and (suspected) exposure to environmental tobacco smoke (acute) (chronic); E66.01 Morbid (severe) obesity due to excess calories; Z87.891 Personal history of nicotine dependence; Z20.822 Contact with and (suspected) exposure to COVID-19
CPT/HCPCS: 36415; 36600; 71045; 71046; 71275; 80048; 80053; 82375; 82805; 82948; 83050; 83880; 84484; 85025; 85380; 87636; 93005; 93970; 94640; 96374; 99285; A9270; C8929; J1650; J1940; J2920; J2930; Q9957; Q9967